=== PATIENT | male | born 1990 | race Caucasian/White ===

== ENCOUNTER → 2016-05-16 | Outpatient (CLI) | payer MEDICAID ==
--- NOTE | 2016-05-16 09:49 | MR ---
MRI Upper Extremity, Left Hand History: Pain in ring finger of left hand. Injury rockclimbing. Pain and swelling. Technique: MRI is performed of the left hand using a 3 [employer] MRI system. Sagittal, coronal, and axial imaging was obtained with standard imaging sequences. A marker was placed at the area of pain dorsal to the PIP joint fourth finger. Standard imaging sequences were performed. Findings: No significant bone marrow abnormality is visualized. No evidence for fracture or loose bod y. Minimal joint effusion is seen at the PIP joint of the fourth finger. No evidence for periarticula r erosion. There is mild edema and minimal attenuation of the radial sided slip of the extensor tendo n at the PIP joint at the area demarcated as the area of pain. The central slip is intact, as well as the ulnar sided slip at the PIP joint. Flexor tendon is normal in appearance. Medial and lateral col lateral ligaments of the PIP joint are intact and unremarkable. Impression: Mild stranding and minimal partial tear at the radial sided slip of the extensor tendon a t the fourth PIP joint. Minimal joint effusion.
== END ==
LOC: FIMAGING 08:09
PROVIDERS: ATTEND Family Medicine Sports Medicine
DX: S66.315A Strain of extensor muscle, fascia and tendon of left ring finger at wrist and hand level, initial encounter (principal); M25.442 Effusion, left hand; Y93.31 Activity, mountain climbing, rock climbing and wall climbing

== ENCOUNTER 2016-09-09 11:15 | Day surgery (SDC) | payer MEDICAID ==
[2016-09-09] MEDS ORDERED: LIDOCAINE 1% 2 ML INJ ONE (11:41)
[2016-09-09] MEDS ORDERED: LIDOCAINE 1% 2 ML INJ ID PRN (12:07)
[2016-09-09] MEDS ORDERED: fentaNYL 100 MCG/2 ML INJ ONE (12:09)
[2016-09-09] MEDS ORDERED: MIDAZOLAM 2 MG/2 ML VIAL ONE ×2 (12:09)
[2016-09-09] MEDS ORDERED: NS 1,000 ML IV SCH (12:15)
[2016-09-09] MEDS ORDERED: SIMETHICONE DROPS 30 ML BOTTLE ONE (12:31)
--- NOTE | 2016-09-09 14:23 | GPN ---
[f rep st] PROCEDURE NOTE PROCEDURE: Colonoscopy. INDICATIONS: Hematochezia, ? fissure, ? Crohn's. CONSENT: Informed consent was obtained from the patient after a full explanation of risks, benefits , and alternatives. COMPLICATIONS: None. MEDICATIONS GIVEN: Versed 6 mg IV, fentanyl 100 mcg IV in divided doses. DESCRIPTION OF EXAM: After conscious sedation was achieved, the endoscope was inserted through the anal orifice and advanced as far as the terminal ileum and then slowly withdrawn. Careful views wer e obtained throughout. Retroflexion was performed in the rectum. TOLERATION OF PROCEDURE: Good. QUALITY OF PREPARATION: Good. VIEWS: Good. ESTIMATED BLOOD LOSS: None. COMPLICATIONS: None. FINDINGS: 1. The colon mucosa appeared normal throughout the colon with no evidence of Crohn disease or other significant mucosal abnormalities. 2. The terminal ileum appeared normal. Approximately 10 cm are able to be examined without difficu lty. 3. Retroflexion in the rectum did not show any obvious fissure. There was some hypertrophied peria nal tissue below the dentate line. 4. Examination of the anal orifice did show a very small erosion. This did not appear to extend in to the anal canal and it was unclear to me whether this is a fissure or not. IMPRESSION: Small erosion just on the exterior side of the anal canal with no obvious fissure in th e canal or in the distal rectum seen, and some hypertrophy tissue and possible small hemorrhoids. RECOMMENDATIONS: 1. We will refer to colorectal surgery for second opinion, possible exam under anesthesia, and poss ible lateral sphincterotomy or other therapy for suspected fissure given pain with bleeding. 2. Colonoscopy could be considered at age 48 for average risk colon cancer screening. Recall will not be placed given that will be 22 years from now and guidelines may change. /[id number]/MODL
== END 2016-09-09 13:47 | disposition home or self-care (01) ==
LOC: FSGY 11:15
PROVIDERS: ATTEND Internal Medicine
PROC: 0WJP8ZZ Inspection of Gastrointestinal Tract, Via Natural or Artificial Opening Endoscopic Approach (ICD-10-PCS; principal; 2016-09-09 12:15)
DX: K62.89 Other specified diseases of anus and rectum (principal); K59.4 Anal spasm; L29.0 Pruritus ani; K92.1 Melena
CPT/HCPCS: J2250; J3010